=== PATIENT | female | born 1975 | race Caucasian/White ===

== ENCOUNTER 2016-05-15 17:59 | Observation (INO) | payer OTHER ==
[~2016-05-15] VITALS: Ht 167.6 cm; Wt 68.5 kg
[2016-05-15 18:03] VITALS: BP 133/92; PULSE 82; RESP 16; O2SAT 100
[2016-05-15 18:40] VITALS: BP 129/75; PULSE 85; RESP 18; O2SAT 98
--- NOTE | 2016-05-15 18:43 | ED.REPORT ---
HPI-Stroke / CVA May 15, 2016 ED Provider: Matthew Reyes MD Pt is a 41 y.o. female with a hx of migraines who presents to the ED c/o right sided foot and facial numbness last known normal 1000. Upon arrival she states her sx resolved around 1045 but she was concerned as similar sx occurred on 05/05 and also lasted approximately 40 minutes. Pt reports associated blurred vision in right eye, right eye pain, and confusion. She report having similar, milder, sx in association with her migraines. Nursing Notes Stated Complaint: POSSIBLE TIA Chief Complaint: Neuro Symptoms/ Deficits Nursing Notes Reviewed: Yes Allergies: Coded Allergies: No Known Allergies (Unverified , 05/15/16) Scheduled B Complex with Vitamin C (Vitamin B-Complex with Vit C) 1 Each Tablet 1 EACH PO DAILY (Reported) Cetirizine HCl (Zyrtec) 10 Mg Capsule 10 MG PO HS (Reported) Cholecalciferol (Vitamin D3) (Vitamin D3) 5,000 Unit Tablet 5,000 UNIT PO DAILY (Reported) Clonazepam (Klonopin) 0.5 Mg Tablet Unknown Dose PO HS (Reported) Multivitamin (Once Daily) 1 Each Tablet 1 EACH PO DAILY (Reported) [place]-3/Dha/Epa/Fish Oil (Fish Oil 1,000 mg Softgel) 1 Each Capsule 1 EACH PO DAILY (Reported) Scheduled PRN Albuterol Sulfate (Ventolin HFA Inhaler) 200 Puff/18 Gm Inhaler 1-2 PUFFS INH q4 -6 hours PRN PRN For Shortness of Breath (Reported) General Time Seen by Provider: 18:39 Chief Complaint Numbness Hx Obtained From: Patient Arrived By: Walk-in Time last known well 1000 Sudden in Onset?: Yes Symptom Duration: 31 - 45 minutes Progression Since Onset: Resolved Severity: Current: No pain currently Context Related History: Reports: Migraine disorder Recent Healthcare: No recent doctor visit Similar Sx Previous: Yes Risk Factors NIH Stroke Scale Level of Consciousness: Alert and responsive (0) Ask Month & Age: Both questions right (0) Open/Close Eyes/Hand Log Rider: Performs both tasks (0) Horizontal EO Movements: None (0) Visual Espinoza: No visual loss (0) Facial Palsy: Normal symmetry (0) Right Arm Motor Drift (10s): No drift 10 sec (0) Left Arm Motor Drift (10s): No drift 10 sec (0) Right Leg Motor Drift (5s): No drift 5 sec (0) Left Leg Motor Drift (5s): No drift 5 sec (0) Limb Ataxia FNF/Heel-Degroot: No ataxia (0) Sensation (Arms/Legs/Face): No sensory loss (0) Language Aphasia: No aphasia, normal (0) Dysarthria: No dysarthria, normal (0) Extinction/Inattention: No exctinct/inattent (0) NIHSS Score: 0 Time NIHSS Performed: 18:50 Date NIHSS Performed: May 15, 2016 Past Medical History Past Medical History Reports: Asthma Reports: Migraines Past Surgical History Reports: Hysterectomy Social History Alcohol Use: "Social" Other Social History: Ambulatory Status Independent Review of Systems Eyes: Reports: Blurred right, Eye pain right Neurologic: Reports: Confusion, Numbness (Right face and foot) Complete sys rev & neg: except as marked. Physical Exam Initial Vital Signs Vital Signs (First) Date Time Temp Pulse Resp B/P Pulse Ox O2 Delivery O2 Flow Rate FiO2 05/15/16 18:03 36.3 82 16 133/92 100 Room Air Initial VS: Reviewed Abdomen / GI: No distention Extremities: Vascular intact, Neuro intact Skin: Warm, Dry, No cyanosis Psychiatric: Mood/affect normal, Behavior normal, Normal thought content General/Constitutional: Awake, Alert, No acute distress, Well appearing, Well developed, Well hydrated, Well nourished, Not toxic appearing Head / Eyes: Atraumatic, Normocephalic, PERRL Neck: Atraumatic Respiratory / Chest: Atraumatic, Breath sounds NL, Breath sounds = bilat, No respiratory distress, No rales, No rhonchi, No wheezing, No retractions, No stridor Cardiovascular: Heart rate NL, Regular rhythm, Heart sounds NL, No gallop, No murmurs, No rubs, Peripheral circulation NL Neurologic: Oriented X3, Speech NL, No motor deficits, No sensory deficits, CN II - XII intact Interpretation & Diagnostics Lab Results Interpretation Result Diagram: 05/15/16 1847 05/15/16 1847 Test 05/15/16 18:47 05/15/16 19:05 White Blood Count 6.4th/mm3 (3.8-10.1) Red Blood Count 4.94mil/mm3 (3.90-5.20) Hemoglobin 15.2g/dL (12.0-15.6) Hematocrit 43.6% (35.0-46.0) Mean Corpuscular Volume 88.3fL (81-100) Mean Corpuscular Hemoglobin 30.8pg (27.0-35.0) Mean Corpuscular Hemoglobin Concent 34.9% (32.0-37.0) Red Cell Distribution Width 11.4% (12.3-15.4) Platelet Count 251bil/L (150-400) Neutrophils (%) (Auto) 66.2% (40-74) Lymphocytes (%) (Auto) 26.4% (14-46) Monocytes (%) (Auto) 5.1% (4-12) Eosinophils (%) (Auto) 1.9% (0-5) Basophils (%) (Auto) 0.2% (0-3) Prothrombin Time 10.0sec (8.1-12.5) Prothromb Time International Ratio 0.94ratio Activated Partial Thromboplast Time 27.2sec (22.8-33.0) Sodium Level 139mEq/L (134-144) Potassium Level 3.6mEq/L (3.5-5.2) Chloride Level 102mEq/L (97-108) Carbon Dioxide Level 24mmol/L (18-29) Blood Urea Nitrogen 10mg/dL (6-20) Creatinine 0.55mg/dL (0.57-1.00) Estimat Glomerular Filtration Rate 176mL/min (>59) Glucose Level 92mg/dL (60-99) Calcium Level 9.7mg/dL (8.5-10.1) Magnesium Level 2.3mg/dL (1.6-2.6) Total Bilirubin 0.9mg/dL (0.0-1.2) Aspartate Amino Transf (AST/SGOT) 15U/L (0-50) Alanine Aminotransferase (ALT/SGPT) 8U/L (0-32) Alkaline Phosphatase 67U/L (25-150) Troponin T < 0.010ug/L (0.0-0.011) Total Protein 7.9g/dL (6.4-8.4) Albumin 5.0g/dL (3.4-5.0) Hold Vines Top Tube Received (Received) Urine Color Yellow (YELLOW) Urine Appearance Clear (CLEAR,HAZY) Urine pH 5.5 (5.0-8.0) Urine Specific Ripley 1.015 (1.003-1.035) Urine Protein Negativemg/dL (NEG,TRACE) Urine Glucose (UA) Negativemg/dL (NEGATIVE) Urine Ketones Negativemg/dL (NEGATIVE) Urine Occult Blood Negative (NEGATIVE) Urine Nitrite Negative (NEGATIVE) Urine Bilirubin Negative (NEGATIVE) Urine Urobilinogen Normalmg/dL (NORMAL) Urine Leukocyte Esterase Negative (NEGATIVE) Urine RBC 0-2/hpf (0-2) Urine WBC 0-5/hpf (0-5) Urine Epithelial Cells None/hpf (NONE-MOD) Urine Crystals None seen (NONE SEEN) Urine Bacteria Few/hpf (NONE-FEW) Urine Hyaline Casts None/lpf (NONE) Urine Granular Casts None seen (NONE SEEN) Urine Waxy Casts None seen (NONE SEEN) Urine Red Blood Cell Casts None seen (NONE SEEN) Urine White Blood Cell Casts None seen (NONE SEEN) Urine Mucus None seen (None Seen) Urine Trichomonas None seen (NONE SEEN) Urine Yeast None (NONE SEEN) Urinalysis Comment None Urine Culture Reflexed Not indicated ECG Interpretation ECG Interpretation: No ST changes Time: 19:47 Interpreted by: ED physician Normal ECG Interpretation: Normal rate (70), Normal sinus rhythm CT Head Interpretation IMPRESSION: Normal examination, no acute or subacute ischemic injury is found. Dictated by: Anand Heck M.D. on 05/15/2016 at 19:20 Approved by: Anand Heck M.D. on 05/15/2016 at 19:21 Re-Eval/Medical Decision Med Decision/Clinical Course 41-year-old female history of migraines presenting complaining of right eyebrow revision, right face numbness, right foot numbness that lasted for 45 minutes earlier today. She reports 2 similar episodes over the last couple weeks. She reports she has had these symptoms with headaches before but minimal headache today. Her neurological exam is completely normal. Labs unremarkable. CT brain no acute pathology. Patient will be admitted for TIA workup. Differential diagnosis TIA versus migraine related versus MS versus other. Source of Hx: Old records Re-Evaluation/Progress : Time of Eval: 20:34 Re-Evaluation/Progress Note: Pt rechecked. Discussed normal lab findings, recommended admission for stroke studies. Pt understands and agrees with plan. Consultation : Referral / Consult Name: Michael Sahu MD Call Returned at: 20:25 Director Of Health Education: Will see patient, Agrees with eval, Agrees with plan, Accepts admit Note: Discussed pt condition, accepts admit. Counseled Regarding: Diagnosis, Lab results, Need for follow-up, When/why to return to ED, Need for admission Patient Discharge & Departure Impression: Primary Impression: TIA (transient ischemic attack) Disposition: ADMITTED TO HOSPITAL Discharge Condition All VS Reviewed: Yes Condition: Stable Scribe Attestation Portions of this note were transcribed by David Macias. I, Dr. Reyes personally performed the history, physical exam and medical decision-making; I reviewed and confirmed the accuracy of the information in the transcribed note. Signed by: Flori Moore, 05/15/16 and 2233. Matthew Reyes MD May 15, 2016 18:42 DAVID MACIAS May 15, 2016 18:57
[2016-05-15 19:10] LABS: BASOPHILS % (AUTO) 0.2 % (0-3); EOSINOPHILS % (AUTO) 1.9 % (0-5); MONOCYTES % (AUTO) 5.1 % (4-12); Mean Corpuscular Hemoglobin 30.8 pg (27.0-35.0); Mean Corpuscular Volume 88.3 fL (81-100); NEUTROPHILS % (AUTO) 66.2 % (40-74); Platelet Count 251 bil/L (150-400)
--- NOTE | 2016-05-15 19:22 | DRSVH ---
PROCEDURE: CT BRAIN WITHOUT CONTRAST ([id number]) INDICATIONS: Stroke TECHNIQUE: Noncontrast 4.5 mm thick angled axial sections acquired from the foramen magnum to the vertex, with c oronal reformats. COMPARISON: None. FINDINGS: Image quality: Excellent. CSF spaces: Basal cisterns are patent. No extra-axial fluid collections. Ventricles are normal in size and shape. Brain: No midline shift. No intracranial masses or hemorrhage. Crandall-white matter interface is norm al. Skull and face: Calvarium and visualized facial bones are intact, without suspicious lesions. Sinuses: Visualized sinuses and mastoids are clear. IMPRESSION: Normal examination, no acute or subacute ischemic injury is found. Dictated by: Anand Heck M.D. on 05/15/2016 at 19:20 Approved by: Anand Heck M.D. on 05/15/2016 at 19:21
[2016-05-15 19:24] LABS: APPEARANCE,URINE CLEAR (CLEAR,HAZY); COLOR,URINE YELLOW (YELLOW); OCCULT BLOOD,URINE NEGATIVE (NEGATIVE); PH,URINE 5.5 (5.0-8.0); UROBILINOGEN,URINE NORMAL (NORMAL)
[2016-05-15 19:32] LABS: INR 0.94 ratio
[2016-05-15] MEDS ORDERED: 0.9% Sodium Chloride 1,000 ML IV ONE (19:35)
[2016-05-15 19:38] LABS: TROPONIN T < 0.010 ug/L (0.0-0.011)
[2016-05-15] MEDS ORDERED: Ondansetron 2 mg/mL 2 mL Inj IVPUSH PRN (20:30)
[2016-05-15] MEDS ORDERED: Alum-Mag Hydrox-Simeth 30 mL Suspension PO PRN ×2 (20:30→21:45)
[2016-05-15 21:04] VITALS: BP 127/81; RESP 18; O2SAT 100
[2016-05-15] MEDS ORDERED: CETI10CA PO (21:26)
[2016-05-15] MEDS ORDERED: ALBU18HF INH (21:26)
[2016-05-15] MEDS ORDERED: CLON0.5T PO (21:26)
[2016-05-15] MEDS ORDERED: OMEG-38 PO (21:27)
[2016-05-15] MEDS ORDERED: CHOL500011 PO (21:27)
[2016-05-15] MEDS ORDERED: VITA1TAB22 PO (21:27)
[2016-05-15] MEDS ORDERED: MULT-666 PO (21:27)
--- NOTE | 2016-05-15 21:40 | NUR ---
Admission ER admit received report from Rena Howard RN ,brought up in w/c via tech, amb ind to bed, DX w/TIA after experiencing blurred vision and facial numbness which has all resolved, orders set for TIA ordered, swallow screen passed fasting for am lipids, will have ECHO/MRI in am , head CT was neg., med rec done in ER rest of admit completed.Placed on telemetry SR 70's.Prefers to keep street pants on otherwise skin unremarkable.
[2016-05-15] MEDS ORDERED: Polyethylene Glycol (PEG) 17 Gm Powder PO PRN (21:45)
[2016-05-15] MEDS ORDERED: Ondansetron 2 mg/mL 2 mL Inj IV PRN (21:45)
[2016-05-15 21:52] VITALS: BP 127/85; PULSE 69; RESP 18; O2SAT 97
[2016-05-15 21:57] VITALS: PULSE 76
[2016-05-15] MEDS ORDERED: Albuterol 2.5 mg/3 mL Inhalation Solution NEB PRN (22:02)
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
[2016-05-16 04:02] VITALS: BP 126/77; PULSE 72; RESP 17; O2SAT 100
[2016-05-16 06:10] LABS: Mean Corpuscular Hemoglobin 30.9 pg (27.0-35.0); Mean Corpuscular Volume 88.8 fL (81-100)
[2016-05-16 07:56] VITALS: BP 112/78; PULSE 78; RESP 18; O2SAT 99
--- NOTE | 2016-05-16 10:50 | NUR ---
Social Work Note: Screen Note Data& Assessment: EMR reviewed. Samina José is a 41 year old female under observation for possible TIA. Pt has [employer]. Pt lives in [place] with her family and is independent at baseline. PT has cleared pt to go home with no needs, pt walked 400ft. Per OT documentation, pt has been screened out. No discharge needs identified at this time. Anticipated discharge home via POV when medically ready. SW to continue to follow if any needs arise. Plan: Anticipated discharge home via POV when medically ready. o discharge needs identified at this time. SW to continue to follow if any needs arise. JOSE RAUL Lisa
--- NOTE | 2016-05-16 12:45 | DRSVH ---
[facility] [address] [place] [address] Echocardiogram Report Name: NATALY SIDDIQUI BStudy Date: Height: 66 in Hospital Exam Location: [facility] Weight: 151 lb Gender: Female BSA: 1.8 m2 : 1975 Age: 41 yrs BP: 126/77 mmHg Reason For Study: TIA Ordering Physician: Performed By: Miguel A Reid Interpretation Summary Normal echo study. No cardiac source of embolus is identified. ABBIE with bubble study is suggested. Procedure: A two-dimensional transthoracic echocardiogram with color flow and Doppler was performed. The study quality was technically adequate. There is no prior echocardiogram noted for this patient. A saline contrast injection was performed to assess for cardiac shunting. The patient was in normal sinus rhythm during the exam. Left Ventricle: The left ventricle is normal in size. There is normal left ventricular wall thickness. The ejection fraction is estimated to be 60-65%. There are no focal wall motion abnormalities. Assessment of diastolic parameters indicates normal left ventricular diastolic function and normal filling pressures. Right Ventricle: The right ventricle is normal in size and function. Atria: Both atria are normal in size. Injection of contrast documented no interatrial shunt. Mitral Valve: The mitral valve is normal in structure and function. There is trace mitral regurgitation. Aortic Valve: The aortic valve is trileaflet. The aortic valve opens well. No aortic regurgitation is present. Tricuspid Valve: The tricuspid valve is normal in structure and function. No tricuspid regurgitation. Pulmonary artery pressures cannot be estimated because of the lack of a measurable TR jet velocity. Pulmonic Valve: The pulmonic valve is not well visualized. Great Vessels: The aortic root is normal size. The dimensions of the ascending aorta are normal. The pulmonary artery is normal size. The IVC is of normal diameter and collapses greater than 50% with a sniff. This suggests a low right atrial pressure of 3 mm Hg. Pericardium/ Pleura There is no pericardial effusion. There is no pleural effusion. MMode/2D Measurements & Calculations LVIDd: 4.8 cm LA dimension: 2.8 cm RA long axis LVOT diam LVIDs: 2.7 cm FS: 43.5 % LA A2 area: 17.5 cm RA area AoV Opening EPSS: 0.40 cm LA A4 area: 14.0 cm IVSd: 0.65 cm LA length (vol): 4.9 cm: 11.6 cm Ao root diam LVPWd: 0.83 cm LA vol: 42.9 ml RA vol LA vol index : 27.7 ml Aortic Jxn RA : 15.6 mm2 asc Aorta IVC diam: 1.3 cm Diam: 2.9 cm LV dougherty. diameter/BSA LV sys. diameter/BSA (cm/m^2): 2.7 (cm/m^2): 1.5 Doppler Measurements & Calculations Ao V2 max MV E max alcides MV E/A: 1.4 PA V2 max: 93.0 cm/sec : 134.5 cm/sec : 80.4 cm/sec Med Peak E' Alcides PA mean P.7 mmHg Ao max PG MV A max alcides PA Accel Time: 0.14 sec : 7.2 mmHg : 59.5 cm/sec E/E' med: 9.6 Ao mean PG Pulm A Revs Dur : 4.2 mmHg MV A dur: 0.11 sec MV dec time Ao V2 mean PA V2 mean Pulm A Revs Dur - MV A : 0.16 sec : 99.0 cm/sec : 61.4 cm/sec Dur: -0.01 msec Ao V2 VTI PA pr(Accel) : 28.5 cm : 19.1 mmHg Electronically signed by: Rene Hazel on Reading Physician:05/16/2016 12:44 PM
[2016-05-16 13:00] VITALS: BP 124/84; PULSE 93; RESP 18; O2SAT 99
--- NOTE | 2016-05-16 13:38 | DRSVH ---
PROCEDURE: MRI STROKE PROTOCOL ([id number]) Pre- and post-contrast brain MRI, non-contrast brain MR angiogram, pre- and postcontrast neck MR leida ogram INDICATIONS: change in vision TECHNIQUE: Brain: Noncontrast axial T1 spin echo, axial T2 fast spin echo, sagittal and axial FLAIR, coronal T2 fast spin echo, axial gradient echo, axial diffusion and ADC through the brain. After the administr ation of contrast, axial 3D VIBE of the cranial vasculature and brain. Brain MRA: Non-contrast 3-D time of flight MR angiogram, with multiple xmpqfcr-vlactlkjh-hgrlipmetd (MIP) reformats performed. Neck MRA: Axial and sagittal TruFISP through the neck. Coronal dynamic MR angiogram during administ ration of contrast in the arterial and venous phases, with 3-dimenstional xgijmkl-qsuuusauq-roygwxoiz n (MIP) reformats constructed from subtraction images. COMPARISON: [facility], CT, CT BRAIN WO CON, 05/15/2016, 18:59. FINDINGS: Image quality: Partially degraded by motion artifact. BRAIN: CSF spaces: Ventricles are normal in size and shape. Cavum septum vergae is present. Basal cisterns are patent. No extra-axial fluid collections. Brain: No intracranial bleeds or mass effects. Crandall-white matter interface is normal. Diffusion we ighted images show no acute ischemic insults. Brainstem appears normal. Normal intravascular flow v oids are present. No abnormal intracranial enhancement. Skull and face: Calvarial marrow signal is normal. Orbits appear normal. Sinuses: Sinuses and mastoids are clear. BRAIN MR ANGIOGRAM: Anterior circulation: Intracranial internal carotid arteries are normal in size and enhancement. Th e flow within the paired anterior cerebral arteries is normal and symmetric. The flow within the mid dle cerebral arteries is normal and symmetric. The anterior communicating artery is seen. No stenos es, occlusions, or aneurysms. Posterior circulation: The visualized portions of the vertebral arteries demonstrate normal caliber, and join to form a normal appearing basilar artery. The flow within the posterior cerebral arteries is normal and symmetric. No stenoses, occlusions, or aneurysms. NECK MR ANGIOGRAM: Carotids: Great vessels demonstrate a conventional anatomy as they arise from the aortic arch. The origins of the common carotid arteries appear patent. The calibers and courses of both common caroti d arteries are normal. The bifurcation regions appear normal bilaterally. The internal carotid yusuf rashaad demonstrate normal course and caliber. Posterior circulation: The origins of the vertebral arteries appear patent. More superior portions of both vertebral arteries are not well seen secondary to venous overlap. Miscellaneous: Subclavian arteries appear patent. Pre-contrast images through the neck demonstrate asymmetrical thyroid tissue, with little if any evidence of right-sided thyroid tissue. This may be p ostsurgical. IMPRESSION: BRAIN MRI: 1. Negative brain MRI. No recent infarct. BRAIN MR ANGIOGRAM: Negative cerebral MR angiography. NECK MR ANGIOGRAM: 1. Patent bilateral internal carotid arteries. 2. Suboptimally visualized vertebral arteries, which are patent as visualized. 3. Patient appears to be status post right thyroidectomy; recommend correlation with surgical history . The estimate of stenosis included in the report of the imaging study was calculated using the NASCET method Dictated by: Rina Galicia M.D. on 05/16/2016 at 13:31 Approved by: Rina Galicia M.D. on 05/16/2016 at 13:37
--- NOTE | 2016-05-16 14:08 | PCM.DIMED ---
Discharge Instructions Date of Service May 16, 2016 Dates of Hospitalization May 15, 2016 at 20:48 Discharge Diagnosis Discharge Diagnosis # Acute transient blurry vision and facial numbness likely due to migraine with aura; present on admission. # History of Migraines with aura. # History of asthma. stable # History of right thyroidectomy - TSH normal at 3.78 Diet No restrictions Activity No restrictions Call your provider Fever or Chills, Shortness of breath, Chest pain, Weakness (unilateral) Patient Instructions Seek immediate medical attention if any new or worsening signs or symptoms occur. Follow-up plan 1. Followup with primary care provider in 1-2 weeks. Solomon Mart May 16, 2016 14:08
--- NOTE | 2016-05-16 14:45 | NUR ---
Discharge Pt to discharge to home by herself; 1 IV access discontinued; no c/o pain, A&Ox3, ambulating ind with steady gait in room. Pt given written and verbal instructions for discharge to follow up with PCP within 1-2 weeks, to which pt states understanding. Pt given some names of physicians in area to contact for this as she is not established or familiar with physicians in area. No Rx's given this visit. All personal belongings with pt at time of discharge and pt walked off unit to elevator and directions given to Urgent Care parking lot.
--- NOTE | 2016-05-16 19:08 | PCM.DC.MED ---
Discharge Summary Date of Service May 16, 2016 Dates of Hospitalization Date of Hospital Admission May 15, 2016 at 20:48 Date of Discharge: May 16, 2016 Providers: Admitting Physician: Michael Sahu MD Primary Care Physician: Nopcp Attending Physician: Michael Sahu MD Diagnosis at Time of Discharge Diagnosis at Time of Discharge # Acute transient blurry vision and facial numbness likely due to migraine with aura; present on admission. # History of Migraines with aura. # History of asthma. stable # History of right thyroidectomy - TSH normal at 3.78 Procedures XRay, CTs & MRIs Date of Service: 05/15/16 1841 PROCEDURE: CT BRAIN WITHOUT CONTRAST ([id number]) INDICATIONS: Stroke IMPRESSION: Normal examination, no acute or subacute ischemic injury is found. Dictated by: Anand Heck M.D. on 05/15/2016 at 19:20 Date of Service: 05/16/16 0742 PROCEDURE: MRI STROKE PROTOCOL ([id number]) Pre- and post-contrast brain MRI, non-contrast brain MR angiogram, pre- and postcontrast neck MR angiogram IMPRESSION: BRAIN MRI: 1. Negative brain MRI. No recent infarct. BRAIN MR ANGIOGRAM: Negative cerebral MR angiography. NECK MR ANGIOGRAM: 1. Patent bilateral internal carotid arteries. 2. Suboptimally visualized vertebral arteries, which are patent as visualized. 3. Patient appears to be status post right thyroidectomy; recommend correlation with surgical history. The estimate of stenosis included in the report of the imaging study was calculated using the NASCET method Dictated by: Rina Galicia M.D. on 05/16/2016 at 13:31 Approved by: Rina Galicia M.D. on 05/16/2016 at 13:37 Cardiac Echo Impression Date of Service: 05/16/16 0800 Echocardiogram Report Interpretation Summary Normal echo study. No cardiac source of embolus is identified. Electronically signed by: Rene Hazel on Reading Physician:05/16/2016 12:44 PM Brief History As noted in H&P by Dr. Guzman: Patient is a 41 y.o. female with hx of migraines and asthma, who was sent from to ED, c/o right sided ball of foot and facial numbness onset 1000 today. Pt reports of associated blurred lateral vision of right eye with pain., numbness which initially was on the right side of her face above her upper jaw, then later moved to left side of face, duration of 2 hours. Similar event of blurry vision occurred 10 days ago on , which lasted 40min. Patient denies headaches at onset of symptoms. Patient reports she has been getting muscle twitching and intermittent numbness/weakness on that move around on bilateral lower arms and legs intermittently now for several months. Patient also endorses chronic neck pain which started after a ride at [facility] last year. Patient states her PCP in [place], [place] did a MRI in November of 2014, which was negative for any acute findings. Patient has not had PCP since moving to this area in January 2016, has not had any medication for her asthma or migraines and uses Advil 400mg to treat her migraines. Patient states she has headaches on a daily basis, out of which 2,3 out of the week turns into full migraines that last for 2,3 hours. Patient also has anxiety issues and has been taking what is left of her Klonopin. In ED, NIHSS of 0. CT negative for acute process. Labs grossly all normal. Patient admitted for further work up of her possible TIA. Hospital Course pt remained completely asymptomatic during this hospital. workup for TIA/CVA completely negative and unremarkable as noted above. suspect symptoms likely migraine with aura as opposed to TIA. by day of d/c neuro exam non-focal. lungs CTA bilat. Exam Vital Signs (Last) Date Time Temp Pulse Resp B/P Pulse Ox O2 Delivery O2 Flow Rate FiO2 05/16/16 13:00 36.7 93 18 124/84 99 Room Air Test 05/15/16 18:47 05/15/16 19:05 05/15/16 23:29 05/16/16 05:35 Neutrophils (%) (Auto) 66.2% (40-74) Lymphocytes (%) (Auto) 26.4% (14-46) Monocytes (%) (Auto) 5.1% (4-12) Eosinophils (%) (Auto) 1.9% (0-5) Basophils (%) (Auto) 0.2% (0-3) Prothrombin Time 10.0sec (8.1-12.5) Prothromb Time International Ratio 0.94ratio Activated Partial Thromboplast Time 27.2sec (22.8-33.0) Hemoglobin A1c 5.4% (4.8-5.6) Magnesium Level 2.3mg/dL (1.6-2.6) Total Bilirubin 0.9mg/dL (0.0-1.2) Aspartate Amino Transf (AST/SGOT) 15U/L (0-50) Alanine Aminotransferase (ALT/SGPT) 8U/L (0-32) Alkaline Phosphatase 67U/L (25-150) Troponin T < 0.010ug/L (0.0-0.011) Total Protein 7.9g/dL (6.4-8.4) Albumin 5.0g/dL (3.4-5.0) Hold Vines Top Tube Received (Received) Urine Color Yellow (YELLOW) Urine Appearance Clear (CLEAR,HAZY) Urine pH 5.5 (5.0-8.0) Urine Specific [place] 1.015 (1.003-1.035) Urine Protein Negativemg/dL (NEG,TRACE) Urine Glucose (UA) Negativemg/dL (NEGATIVE) Urine Ketones Negativemg/dL (NEGATIVE) Urine Occult Blood Negative (NEGATIVE) Urine Nitrite Negative (NEGATIVE) Urine Bilirubin Negative (NEGATIVE) Urine Urobilinogen Normalmg/dL (NORMAL) Urine Leukocyte Esterase Negative (NEGATIVE) Urine RBC 0-2/hpf (0-2) Urine WBC 0-5/hpf (0-5) Urine Epithelial Cells None/hpf (NONE-MOD) Urine Crystals None seen (NONE SEEN) Urine Bacteria Few/hpf (NONE-FEW) Urine Hyaline Casts None/lpf (NONE) Urine Granular Casts None seen (NONE SEEN) Urine Waxy Casts None seen (NONE SEEN) Urine Red Blood Cell Casts None seen (NONE SEEN) Urine White Blood Cell Casts None seen (NONE SEEN) Urine Mucus None seen (None Seen) Urine Trichomonas None seen (NONE SEEN) Urine Yeast None (NONE SEEN) Urinalysis Comment None Urine Culture Reflexed Not indicated Urine Opiates Screen Negative Urine Methadone Screen Negative Urine Barbiturates Screen Negative Urine Amphetamines Screen Negative Urine Benzodiazepines Screen Negative Urine Cocaine Metabolite Screen Negative Urine Cannabinoids Screen Negative White Blood Count 5.9th/mm3 (3.8-10.1) Red Blood Count 4.63mil/mm3 (3.90-5.20) Hemoglobin 14.3g/dL (12.0-15.6) Hematocrit 41.1% (35.0-46.0) Mean Corpuscular Volume 88.8fL (81-100) Mean Corpuscular Hemoglobin 30.9pg (27.0-35.0) Mean Corpuscular Hemoglobin Concent 34.8% (32.0-37.0) Red Cell Distribution Width 11.4% (12.3-15.4) Platelet Count 209bil/L (150-400) Sodium Level 142mEq/L (134-144) Potassium Level 4.2mEq/L (3.5-5.2) Chloride Level 110mEq/L (97-108) Carbon Dioxide Level 21mmol/L (18-29) Blood Urea Nitrogen 7mg/dL (6-20) Creatinine 0.48mg/dL (0.57-1.00) Estimat Glomerular Filtration Rate 206mL/min (>59) Glucose Level 98mg/dL (60-99) Calcium Level 9.0mg/dL (8.5-10.1) Thyroid Stimulating Hormone (TSH) 3.780uIU/mL (0.450-4.500) Discharge Medications Discharge Medications B Complex with Vitamin C (Vitamin B-Complex with Vit C) 1 Each Tablet 1 EACH PO DAILY (Reported) Cetirizine HCl (Zyrtec) 10 Mg Capsule 10 MG PO HS (Reported) Cholecalciferol (Vitamin D3) (Vitamin D3) 5,000 Unit Tablet 5,000 UNIT PO DAILY (Reported) Clonazepam (Klonopin) 0.5 Mg Tablet Unknown Dose PO HS (Reported) Multivitamin (Once Daily) 1 Each Tablet 1 EACH PO DAILY (Reported) [place]-3/Dha/Epa/Fish Oil (Fish Oil 1,000 mg Softgel) 1 Each Capsule 1 EACH PO DAILY (Reported) As needed Albuterol Sulfate (Ventolin HFA Inhaler) 200 Puff/18 Gm Inhaler 1-2 PUFFS INH q4 -6 hours PRN PRN For Shortness of Breath (Reported) Followup Plan Disposition: Home Follow-up plan 1. Followup with primary care provider in 1-2 weeks. Discharge Diet: No restrictions Discharge Activity: No restrictions Patient Instructions Seek immediate medical attention if any new or worsening signs or symptoms occur. Time spent 30 min Solomon Mart May 16, 2016 19:08
== END 2016-05-16 14:40 | disposition home or self-care (01) ==
LOC: SED 17:59 → MOC 20:48
PROVIDERS: ADMIT Hospitalist; ATTEND Hospitalist
DX: G43.109 Migraine with aura, not intractable, without status migrainosus (principal); H53.8 Other visual disturbances; R20.0 Anesthesia of skin; J45.909 Unspecified asthma, uncomplicated; E89.0 Postprocedural hypothyroidism; F41.9 Anxiety disorder, unspecified
CPT/HCPCS: 36415; 70450; 70549; 70553; 80048; 80053; 81000; 82306; 83036; 83735; 84443; 84484; 85025; 85027; 85610; 85730; 92610; 93005; 96374; 97161; 99285; A9585; C8929; G0378; G0480; G8978; G8979; G8980; J1650; J7030